=== PATIENT | female | born 1965 | race African-American/Black ===

== ENCOUNTER 2017-11-28 18:04 | Emergency (ER) | payer OTHER ==
[~2017-11-28] VITALS: Ht 154.9 cm; Wt 95.3 kg
--- NOTE | ~2017-11-28 | EKG ---
[address] [place] [address] ELECTROCARDIOGRAM REPORT Name: NABEEL AREVALO Room #: DEP [facility]#: [id number] Admission: 11/28/17 Attend Phys: Discharge: 11/28/17 Date of : 69 Report #: [id number] THIS REPORT FOR: //name// [facility] ED Test Date: 2017-11-28 Test Time: 18:55:39 Pat Name: NABEEL AREVALO Department: Room: Gender: F Customer Sales Advisor: josue : [id number] Requested By: Khurram Mckeon Order Number: [id number] MD: Sacha Chew Measurements Intervals [place] Rate: 99 P: 49 ME: 175 QRS: 23 QRSD: 79 T: -7 QT: 339 QTc: 435 Interpretive Statements Sinus rhythm Borderline T wave abnormalities Compared to ECG 10/04/2015 19:24:51 No significant changes Electronically Signed On 11-30-2017 13:59:26 CDT by Sacha Chew [email or web address] <ELECTRONICALLY SIGNED> By: Sacha Chew MD, [facility] 11/30/17 [id number] Sacha Chew MD, FACC /EPI
[~2017-11-28 18:04] MED LIST: CITRATE OF MAG296 ML PO; COLACE 100 MG100 MG PO; DIOVAN 80 MG TA80 M1 PO; HYDROCHLOROTHIA25 M2 PO; LOPRESSOR50 PO; MAGNESIUM OXIDE; MILK OF MA2400 MG/10 PO; NORCO 5-325 TA1 EACH PO; PHENERGAN 25 MG25 M1 PO; POTASSIUM20 PO; TRIAMTERENE/HCT1 CA1 PO; VICODIN 5-5001 EACH PO; ZOFRAN ODT4 MG PO
[2017-11-28 18:56] LABS: URINE BILIRUBIN NEGATIVE (Negative); URINE BLOOD 1+ (Negative); URINE CLARITY CLEAR; URINE COLOR YELLOW; URINE GLUCOSE-RANDOM* NEGATIVE (Negative); URINE KETONES NEGATIVE (Negative); URINE NITRITE-REFLEX NEGATIVE (Negative); URINE PROTEIN (DIPSTICK) NEGATIVE (Negative); URINE SPECIFIC GRAVITY <= 1.005 (1.005-1.035); URINE UROBILINOGEN 0.2 E.U./dl (0.2-1.0)
[2017-11-28 19:05] LABS: URINE LEUKOCYTES-REFLEX 1+ (Negative)
[2017-11-28 19:07] LABS: ABSOLUTE NEUTROPHILS 8.5 thou/uL (1.4-8.2); BASOPHILS 0.8 % (0.0-2.0); EOSINOPHILS 0.7 % (0.0-3.0); HEMATOCRIT 40.3 % (37.0-47.0); HEMOGLOBIN 13.3 gm/dL (12.0-15.0); LYMPHOCYTES 17.7 % (24.0-44.0); MCH 28.3 pg (26.0-34.0); MCV 85.7 fL (80.0-100.0); MONOCYTES 11.8 % (1.0-8.0); PLATELET COUNT 233 thou/uL (150-400); RBC 4.71 mil/uL (4.20-5.00); RDW 13.9 % (10.5-14.5); WBC 12.3 thou/uL (4.0-11.0)
[2017-11-28 19:15] LABS: CASTS None Seen /LPF (None Seen); CRYSTALS None Seen /LPF (None Seen); SQUAMOUS 4-10 Moderate /LPF (0-3); URINE RBC 0-2 Rare /HPF (0-2); URINE WBC-REFLEX 6-15 Few /HPF (0-5)
[2017-11-28 19:16] LABS: ANION GAP 4 mmol/L (7-16); BUN 11 mg/dL (7-18); CALCIUM 8.7 mg/dL (8.5-10.1); CHLORIDE 103 mmol/L (98-107); CO2 29 mmol/L (21-32); CREATININE 1.1 mg/dL (0.6-1.0); GLUCOSE 131 mg/dL (74-106); POTASSIUM 3.8 mmol/L (3.5-5.1); SODIUM 136 mmol/L (136-145)
[2017-11-28 19:27] LABS: ALBUMIN 3.3 g/dL (3.4-5.0); LIPASE 93 U/L (73-393); SGOT 34 U/L (15-37); SGPT 28 U/L (30-65); TOTAL BILIRUBIN 0.8 mg/dL (<0.1-1.0); TOTAL PROTEIN 8.1 g/dL (6.4-8.2); TROPONIN-I <0.06 ng/mL (<0.06)
[2017-11-28] MEDS ORDERED: HYDROCODONE-AP1 EAC6 PO (20:43)
[2017-11-28] MEDS ORDERED: FLAGYL500 MG PO (20:43)
[2017-11-28] MEDS ORDERED: CIPROFLOXACIN500 M1 PO (20:43)
== END 2017-11-28 22:37 | disposition home or self-care (01) ==
LOC: ER 18:04
PROVIDERS: Emergency Medicine
DX: K57.92 Diverticulitis of intestine, part unspecified, without perforation or abscess without bleeding (principal); I10 Essential (primary) hypertension; Z90.710 Acquired absence of both cervix and uterus; Z90.49 Acquired absence of other specified parts of digestive tract

== ENCOUNTER 2020-01-07 15:40 | Inpatient (IN) | payer OTHER ==
[~2020-01-07] VITALS: Ht 154.9 cm; Wt 107.0 kg
[~2020-01-07 15:40] MED LIST changes: +CIPROFLOXACIN500 M1 PO; +FLAGYL500 MG PO; +HYDROCODONE-AP1 EAC6 PO
[2020-01-07 16:19] VITALS: BP 186/107
[2020-01-07 18:20] LABS: URINE BILIRUBIN NEGATIVE (Negative); URINE BLOOD 1+ (Negative); URINE CLARITY CLEAR; URINE COLOR YELLOW; URINE GLUCOSE-RANDOM* NEGATIVE (Negative); URINE KETONES NEGATIVE (Negative); URINE LEUKOCYTES-REFLEX NEGATIVE (Negative); URINE NITRITE-REFLEX NEGATIVE (Negative); URINE PROTEIN (DIPSTICK) NEGATIVE (Negative); URINE UROBILINOGEN 0.2 E.U./dl (0.2-1.0)
[2020-01-07 18:32] LABS: BACTERIA-REFLEX 1-9 Few /HPF (None Seen); CASTS None Seen /LPF (None Seen); CRYSTALS None Seen /LPF (None Seen); SQUAMOUS 0-3 Few /LPF (0-3); URINE RBC 3-10 Few /HPF (0-2); URINE WBC-REFLEX None Seen /HPF (0-5)
[2020-01-07 18:34] LABS: HEMATOCRIT 42.4 % (37.0-47.0); HEMOGLOBIN 14.2 gm/dL (12.0-15.0); MCH 29.2 pg (26.0-34.0); MCHC 33.4 g/dL (28.0-37.0); MCV 87.2 fL (80.0-100.0); RBC 4.87 mil/uL (4.20-5.00); RDW 14.5 % (10.5-14.5); WBC 9.8 thou/uL (4.0-11.0)
[2020-01-07 18:39] LABS: CALCIUM 8.4 mg/dL (8.5-10.1); POTASSIUM 4.1 mmol/L (3.5-5.1)
[2020-01-07 18:45] LABS: ALBUMIN 3.2 g/dL (3.4-5.0); TOTAL BILIRUBIN 0.6 mg/dL (0.2-1.0); TOTAL PROTEIN 7.7 g/dL (6.4-8.2)
[2020-01-07 19:15] LABS: ABSOLUTE NEUTROPHILS 7.1 thou/uL (1.4-8.2); PLATELET COUNT 205 thou/uL (150-400)
[2020-01-07] MEDS ORDERED: METOPROLOL SUCC25 M1 PO (20:58)
[2020-01-07] MEDS ORDERED: OLMESARTAN MEDO40 MG PO (20:59)
[2020-01-07 21:38] VITALS: BP 125/76
--- NOTE | 2020-01-07 22:06 | NUR ---
ATTEMPTED TO CALL REPORT TO MEDICAL NURSE. NURSE IS UNABLE TO TAKE REPORT.
--- NOTE | 2020-01-07 22:13 | NUR ---
CALLING FOR REPORT, FALL RISK IN BATHROOM UNABLE TO LEAVE LONG ENOUGH TO TAKE REPORT
--- NOTE | 2020-01-07 22:15 | NUR ---
CALLED FOR REPORT, NO ANSWER IN ER, WILL ATTEMPT AGAIN
[2020-01-07 22:25] VITALS: BP 117/65
[2020-01-07 22:37] VITALS: BP 138/94
--- NOTE | 2020-01-07 23:47 | NUR ---
2235 PT ARRIVED TO FLOOR, ROOM ORIENTATION COMPLETED, VSS, PT STATES SHE CONTINUES WITH NAUSEA BUT DIARRHEA AND VOMITING HAVE STOPPED. 2330 ADMISSION ASSESSMENT COMPLETED, SCD'S IN PLACE WILL CONTINUE TO MONITOR
[2020-01-08 02:52] VITALS: BP 134/82
[2020-01-08 06:26] LABS: CALCIUM 7.9 mg/dL (8.5-10.1); POTASSIUM 3.5 mmol/L (3.5-5.1)
[2020-01-08 07:40] VITALS: BP 137/74
--- NOTE | 2020-01-08 13:28 | NUR ---
Assumed care of pt. at 0700. Pt. is calm and cooperative. Pt. is not currently nauseated or vomitting, but fears taking medication will induce N/V. IV antibiotics given. Sprite given at lunch to test ability to hold things down.
[2020-01-08 18:05] VITALS: BP 144/83
[2020-01-08 20:15] VITALS: BP 130/82
--- NOTE | 2020-01-09 00:41 | NUR ---
PT WAS IN A GOOD MOOD AT SHIFT CHANGE.PT DENIED PAIN/N/V SO FAR.UP ADLIB IN THE ROOM.PT CONT ON HER IVF AND IV ABX ORDERED.PT PROGRESSING WELL TOWARDS DC GOALS.CALL LIGHT WITHIN REACH.
[2020-01-09 10:12] VITALS: BP 122/61
[2020-01-09] MEDS ORDERED: CIPRO500 MG PO (11:18)
[2020-01-09] MEDS ORDERED: FLAGYL500 M1 PO (11:18)
[2020-01-09] MEDS ORDERED: ACETAMINOPHEN325 M1 PO (11:18)
[2020-01-09 12:56] VITALS: BP 122/61
--- NOTE | 2020-01-09 17:29 | NUR ---
DC ORDERS RECEIVED. IV REMOVED FROM DARRELL. DC INSTRUCTIONS, F/U APPOINTMENTS AND SCRIPTS REVIEWED WITH PT. [employer]ATING ESCORTED PT TO ED ENTRANCE.
== END 2020-01-09 18:00 | disposition home or self-care (01) | DRG 392 ==
LOC: ER 15:40 → EROBS 21:05 → 4S 22:26
PROVIDERS: Nurse Practitioner Family; Physician Assistant; ADMIT Hospitalist; ATTEND Hospitalist
DX: K57.92 Diverticulitis of intestine, part unspecified, without perforation or abscess without bleeding (principal); Z68.41 Body mass index [BMI] 40.0-44.9, adult; E66.01 Morbid (severe) obesity due to excess calories; I10 Essential (primary) hypertension; K44.9 Diaphragmatic hernia without obstruction or gangrene; K57.90 Diverticulosis of intestine, part unspecified, without perforation or abscess without bleeding; Z90.710 Acquired absence of both cervix and uterus; Z90.49 Acquired absence of other specified parts of digestive tract; Z79.2 Long term (current) use of antibiotics; Z79.891 Long term (current) use of opiate analgesic; Z79.899 Other long term (current) drug therapy; Z98.84 Bariatric surgery status
CPT/HCPCS: 10102; 10195